=== PATIENT | female | born 1950 | race Caucasian/White ===

== ENCOUNTER 2017-11-26 16:18 | Emergency (ER) | payer BC, OTHER ==
--- NOTE | 2017-11-26 17:16 | RAD ---
Indication: Right shoulder pain. 3 views of the right shoulder demonstrates AC joint widening. No fracture is identified. Rib injury is noted. IMPRESSION: Widening of AC joint. No fracture of the right clavicle or shoulder is noted.
--- NOTE | 2017-11-26 17:34 | ED ---
Upper Extremity Pain - HPI Summary HPI Summary: C/o right side neck pain, right side upper back pain, right arm pain starting today. Pt also states she began to worry about pain, and developed sob, right side cp. States hx of right side cp and sob with panic attacks. No active cp or sob here in ED. Also states she had YING this am, which has self resolved. Denies fever, cough, sore throat, abdo pain, N/V/D, chnage in urine or BM. Med hx = none. Denies Estrogen supplements, recent trauma/surgery, immobility, hemoptysis , hx of blood clots, cancer. Non smoker, occ etoh, denies rec drugs. - History of Current Complaint Chief Complaint: EDHeadache Stated Complaint: RT ARM/SHOULDER PAIN Time Seen by Provider: 11/26/17 16:20 Hx Obtained From: Patient Onset/Duration: Started Hours Ago Timing: Constant Severity Initially: Moderate Severity Currently: Moderate Pain Location: Shoulder, Arm Character: Sharp Aggravating Factor(s): Nothing Alleviating Factor(s): Nothing Associated Signs & Symptoms: Positive: Chest Pain, SOB, Neck Pain - Risk Factors DVT Risk Factors: Negative - Allergies/Home Medications Allergies/Adverse Reactions: Allergies Allergy/AdvReac Type Severity Reaction Status Date / Time all abx except penicillins Allergy Hallucinati Uncoded 11/26/17 16:26 ons PMH/Surg Hx/FS Hx/Imm Hx Endocrine/Hematology History: Denies: Hx Anticoagulant Therapy Cardiovascular History: Denies: Hx Cardiac Arrest History: Denies: Hx Dialysis Neurological History: Denies: Hx CVA, Other Neuro Impairments/Disorders Infectious Disease History: No Infectious Disease History: Denies: Traveled Outside the [place] in Last 30 Days - Social History Alcohol Use: None Substance Use Type: Reports: None Smoking Status (MU): Never Smoked Tobacco Review of Systems Constitutional: Negative Eyes: Negative ENT: Negative Positive: Chest Pain Positive: Shortness Of Breath Gastrointestinal: Negative Genitourinary: Negative Positive: Arthralgia, Myalgia Skin: Negative Positive: Headache Psychological: Normal All Other Systems Reviewed And Are Negative: Yes Physical Exam - Summary Physical Exam Summary: Tenderness to palpation along right sternocleidomastoid, right treapezius and rt latissimus dorsi muslces. No pain with active rt shoulder abduction, rt elbow flexion or extension, ret hand and wrist movement. [employer] in left hand weaker than rt, but pt is right handed. No ecchymosis, eythema, deformity, extra warmth, swelling to rt shoulder or arm. PMS intact distally. Triage Information Reviewed: Yes Vital Signs On Initial Exam: Initial Vitals Temp Pulse Resp BP Pulse Ox 98.6 F 88 19 146/88 94 11/26/17 16:22 11/26/17 16:22 11/26/17 16:22 11/26/17 16:22 11/26/17 16:22 Vital Signs Reviewed: Yes Appearance: Positive: Well-Appearing Skin: Positive: Warm Head/Face: Positive: Normal Head/Face Inspection Eyes: Positive: Normal Neck: Positive: Supple Respiratory/Lung Sounds: Positive: Clear to Auscultation Cardiovascular: Positive: Normal Abdomen Description: Positive: Nontender Musculoskeletal: Positive: Normal Neurological: Positive: Normal Psychiatric: Positive: Normal AVPU Assessment: Alert - [place] Coma Scale Best Eye Response: 4 - Spontaneous Best Motor Response: 6 - Obeys Commands Best Verbal Response: 5 - Oriented Coma Scale Total: 15 Diagnostics - Vital Signs Vital Signs Temp Pulse Resp BP Pulse Ox 11/26/17 16:22 98.6 F 88 19 146/88 94 - Laboratory Lab Statement: Any lab studies that have been ordered have been reviewed, and results considered in the medical decision making process. - Radiology cxr Xray Interpretation: No Acute Changes Radiology Interpretation Completed By: Radiologist clavicle Xray Interpretation: No Acute Changes Radiology Interpretation Completed By: Radiologist humerus Xray Interpretation: No Acute Changes Radiology Interpretation Completed By: Radiologist - EKG 1 Cardiac Rate: NL EKG Rhythm: Sinus Rhythm Ectopy: None Course/Dx - Course Course Of Treatment: C/o right side neck pain, right side upper back pain, right arm pain starting today. Pt also states she began to worry about pain, and developed sob, right side cp. States hx of right side cp and sob with panic attacks. No active cp or sob here in ED. Also states she had YING this am, which has self resolved. Denies fever, cough, sore throat, abdo pain, N/V/D, chnage in urine or BM. Med hx = none. Denies Estrogen supplements, recent trauma/ surgery, immobility, hemoptysis, hx of blood clots, cancer. Non smoker, occ etoh , denies rec drugs. Tenderness to palpation along right sternocleidomastoid, right treapezius and rt latissimus dorsi muslces. No pain with active rt shoulder abduction, rt elbow flexion or extension, ret hand and wrist movement. [employer] in left hand weaker than rt, but pt is right handed. No ecchymosis, eythema , deformity, extra warmth, swelling to rt shoulder or arm. PMS intact distally. CXR, EKG, trop NEG. Xras of clavicle and humerus NEG. Sx consistent with muslce spasm and subsequent panic attack. Rx for valium - Diagnoses Provider Diagnoses: Muscle spasm Discharge - Sign-Out/Discharge Documenting (check all that apply): Discharge/Admit/Transfer - Discharge Plan Condition: Stable Disposition: HOME Patient Education Materials: Muscle Spasm (ED) Referrals: Suellen Swenson NP [Primary Care Provider] - Additional Instructions: Follow-up with primary care. Return to ED for any new or worsening symptoms - Billing Disposition and Condition Condition: STABLE Disposition: Home
--- NOTE | 2017-11-26 17:48 | RAD ---
Indication: Shortness of breath. 2 views of the chest are reviewed. Lung kay appear hyperinflated. No pleural fluid, pneumonia or pneumothorax is noted. IMPRESSION: Hyperinflated lung kay. No definite pneumonia is identified.
[2017-11-26] MEDS ORDERED: Diazepam TAB(*) 5 MG PO ONE (18:39)
[2017-11-26 18:45] VITALS: BP 133/79
--- NOTE | 2017-11-27 08:19 | RAD ---
HISTORY: fall/R shoulder pain COMPARISONS: None VIEWS: 3, Frontal internal rotation and external rotation views of the right humerus FINDINGS: BONE DENSITY: Normal. BONES: There is no displaced fracture. 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 ALIGNMENT: There is no dislocation. SOFT TISSUES: Unremarkable. OTHER FINDINGS: None. IMPRESSION: NO ACUTE OSSEOUS INJURY. IF SYMPTOMS PERSIST, RECOMMEND REPEAT IMAGING.
== END 2017-11-26 18:44 | disposition home or self-care (01) ==
LOC: ED 16:18
DX: M62.838 Other muscle spasm (principal); F41.0 Panic disorder [episodic paroxysmal anxiety]; R51 Headache; Z88.3 Allergy status to other anti-infective agents
CPT/HCPCS: 36415; 71046; 84484; 93005; 99282; A9270-GY

== ENCOUNTER 2022-08-02 12:58 | Inpatient (IN) ==
[2022-08-02] MEDS ORDERED: Heparin - STEMI 5,000 UNITS/ML 1 ml VIAL IV ONE (13:11)
[2022-08-02] MEDS ORDERED: VERAPAMIL 2.5 MG/ML 2 ML VIAL ** 5 mg/2 ml ONE (13:17)
[2022-08-02] MEDS ORDERED: Lidocaine 1% MPF 5 ML VIAL ONE (13:18)
[2022-08-02] MEDS ORDERED: nitroGLYCERIN DRIP 25,000 MCG/250 ML BTL ONE (13:18)
[2022-08-02] MEDS ORDERED: Heparin 1,000 UNIT/ML 10 ml (10,000 UNITS) CATHLAB/DIALYSIS ONE (13:18)
[2022-08-02] MEDS ORDERED: Heparin 2 UNITS/ML 1000 mls 2,000 ML IV ONE (13:18)
[2022-08-02 13:20] LABS: ABS Lymphocytes 1.6 10^3/ul (1.0-4.8); ABS Monocytes 0.5 10^3/ul (0-0.8); ABS Neutrophils 5.2 10^3/ul (1.5-7.7); Eosinophil % 0.2 %; Hematocrit 39 % (35-47); Hemoglobin 13.5 g/dL (12.0-16.0); Lymphocyte % 21.9 %; Mean Corpuscular HGB Conc 35 g/dL (31-36); Mean Corpuscular Hemoglobin 33 pg (27-31); Mean Corpuscular Volume 94 fL (80-97); Mean Platelet Volume 8.9 fL (7.4-10.4); Platelet Count 193 10^3/uL (150-450); Red Blood Count 4.13 10^6 /uL (3.70-4.87); Red Cell Distribution Width 14 % (10-15); White Blood Count 7.3 10^3/uL (3.5-10.8)
[2022-08-02 13:25] LABS: INR 1.02 (0.88-1.18)
[2022-08-02] MEDS ORDERED: Iodixanol (CONTRAST) 320 MG/ML 100 ML SDV IV ONE (13:50)
[2022-08-02 14:09] LABS: Albumin 4.7 g/dL (3.2-5.2); Albumin/Globulin Ratio 1.5 (1-3); Creatinine, Serum 0.68 mg/dL (0.51-0.95); Globulin 3.2 g/dL (2-4); Potassium 3.7 mmol/L (3.5-5.0); Total Bilirubin 0.3 mg/dL (0.2-1.0); Total Protein 7.9 g/dL (6.4-8.9); eGFR CKD-EPI 93.6 (>60)
[2022-08-02 14:18] LABS: Activated Partial Thrombo Time 31.5 seconds (26.0-38.0)
[2022-08-02] MEDS ORDERED: Labetalol IV 5 MG/ML 20 ml VIAL IV PUSH ONE ×2 (14:31→15:32)
[2022-08-02 14:55] LABS: High Sensitivity Troponin 1 Hr 18 pg/mL (<15)
[2022-08-02] MEDS ORDERED: Heparin DRIP 25,000 UNITS BAG 25,000 UNITS/500 ML BAG IV SCH (15:00)
[2022-08-02] MEDS ORDERED: Heparin 5000 UNITS/ML 1 mL VIAL IV SCH (16:00)
[2022-08-02] MEDS ORDERED: nitroGLYCERIN DRIP 25,000 MCG/250 ML BTL IV SCH (16:00)
[2022-08-02] MEDS ORDERED: niCARdipine 0.1MG/ML IVPREMIX 20 MG/200 ML BAG IV SCH (17:00)
[2022-08-02] MEDS ORDERED: Labetalol IV 5 MG/ML 20 ml VIAL IV PUSH PRN (18:09)
[2022-08-03 00:53] LABS: Creatinine, Serum 0.65 mg/dL (0.51-0.95); eGFR CKD-EPI 94.7 (>60)
[2022-08-03 06:29] LABS: Activated Partial Thrombo Time 28.1 seconds (26.0-38.0); INR 0.98 (0.88-1.18)
[2022-08-03 06:33] LABS: ABS Lymphocytes 2.2 10^3/ul (1.0-4.8); ABS Monocytes 0.6 10^3/ul (0-0.8); ABS Neutrophils 3.2 10^3/ul (1.5-7.7); Eosinophil % 0.7 %; Hematocrit 35 % (35-47); Hemoglobin 12.1 g/dL (12.0-16.0); Lymphocyte % 36.4 %; Mean Corpuscular HGB Conc 34 g/dL (31-36); Mean Corpuscular Hemoglobin 32 pg (27-31); Mean Corpuscular Volume 93 fL (80-97); Mean Platelet Volume 9.4 fL (7.4-10.4); Platelet Count 159 10^3/uL (150-450); Red Blood Count 3.78 10^6 /uL (3.70-4.87); Red Cell Distribution Width 14 % (10-15)
[2022-08-03 06:40] LABS: Albumin/Globulin Ratio 1.5 (1-3); Calcium 9.1 mg/dL (8.6-10.3); Creatinine, Serum 0.74 mg/dL (0.51-0.95); Globulin 2.7 g/dL (2-4); Magnesium 1.9 mg/dL (1.9-2.7); Potassium 3.8 mmol/L (3.5-5.0); Total Bilirubin 0.3 mg/dL (0.2-1.0); Total Protein 6.7 g/dL (6.4-8.9)
[2022-08-03 09:51] LABS: High Sensitivity Troponin 1 Hr 17 pg/mL (<15)
[2022-08-03] MEDS: Enoxaparin 40 MG/0.4 ML SYR SUBCUT SCH (09:54)
[2022-08-03 15:57] LABS: HDL Cholesterol 68.1 mg/dL
[2022-08-04] MEDS ORDERED: Regadenoson 0.4 MG/5 ML SYRINGE ONE (07:56)
[2022-08-04] MEDS ORDERED: Aminophylline 25 MG/ML VIAL ONE (07:57)
[2022-08-04] MEDS: Enoxaparin 40 MG/0.4 ML SYR SUBCUT SCH (09:53)
[2022-08-04 12:39] VITALS: BP 152/64
== END 2022-08-04 14:45 | disposition home or self-care (01) | DRG 282 ==
LOC: ED 12:58 → EDHOLD 15:49 → SUATTDRO 15:49 → MEDTELE 23:30
PROVIDERS: ADMIT Surgery Surgical Critical Care; ATTEND Internal Medicine